=== PATIENT | male | born 1990 | race Two or more races ===

== ENCOUNTER 2020-08-19 19:52 | Emergency (ER) | payer MEDICAID ==
[~2020-08-19] VITALS: Ht 171.4 cm; Wt 90.7 kg
--- NOTE | 2020-08-19 20:47 | NUR ---
PATIENT TO ER BED 10 C/O LEFT FLANK PAIN FOR THE PAST 3x DAYS. PATIENT STATES THAT THIS MORNING HE WAS FEELING NAUSEOUS. PATIENT IS ALERT AND ORIENTED x4.. DENIES SHORTNESS OF BREATH. PATIENT IS CONNECTED TO THE MONITOR. WILL CONTINUE TO CLOSELY WATCH THE PATIENT.
--- NOTE | 2020-08-19 20:48 | NUR ---
BLOOD COLLECTED AND SENT TO THE LAB.
[2020-08-19] MEDS ORDERED: KETOROLAC TROMETHAMINE 15 MG/ML VIAL ONE (20:50)
[2020-08-19] MEDS: KETOROLAC TROMETHAMINE INJ 30 MG/ML VIAL IV ONE (20:51)
[2020-08-19] MEDS: IV NS 0.9% 1,000 ML BAG IV ONE (20:51)
[2020-08-19 20:57] LABS: BASOPHILS % (AUTO) 0.6 % (0.0-2.0); EOSINOPHILS % (AUTO) 5.2 % (0.0-6.0); HEMATOCRIT 46 % (39-51); HEMOGLOBIN 15.4 g/dL (13.5-17.5); LYMPHOCYTES # (AUTO) 2.6 /CMM (0.8-4.8); LYMPHOCYTES % (AUTO) 40.2 % (20.0-44.0); MEAN CORPUSCULAR HGB CONC 34 g/dl (31.0-36.0); MEAN CORPUSCULAR VOLUME 86 fL (80-96); MONOCYTES # (AUTO) 0.4 /CMM (0.1-1.30); MONOCYTES % (AUTO) 5.8 % (2.0-12.0); NEUTROPHILS # (AUTO) 3.1 /CMM (1.8-8.9); NEUTROPHILS % (AUTO) 48.2 % (43.0-81.0); PLATELET COUNT (AUTO) 217 /CMM (150-450); RED BLOOD CELL COUNT(AUTO) 5.29 MIL/uL (4.5-6.0); WHITE BLOOD COUNT (AUTO) 6.5 K/uL (4.3-11.0)
[2020-08-19 20:59] LABS: BILIRUBIN,URINE NEGATIVE (NEGATIVE); COLOR,URINE YELLOW (YELLOW); LEUKOCYTE ESTERASE ,URINE NEGATIVE (NEGATIVE); NITRITE, URINE NEGATIVE (NEGATIVE); PH,URINE 6.5 (5.0-8.0); PROTEIN,URINE NEGATIVE (NEGATIVE); UGLUCOSE NEGATIVE (NEGATIVE); UROBILINOGEN,URINE 0.2 EU/dL (0.2)
[2020-08-19 21:07] LABS: CALCIUM, SERUM 9.1 mg/dL (8.5-10.1); CREATININE 1.3 mg/dL (0.6-1.3); POTASSIUM 3.9 mmol/L (3.5-5.1)
[2020-08-19 21:13] LABS: ALBUMIN 4.3 g/dL (3.4-5.0); BILIRUBIN,DIRECT 0.1 mg/dL (0.0-0.2); BILIRUBIN,TOTAL 0.5 mg/dL (0.2-1.0); TOTAL PROTEIN, SERUM 7.5 g/dL (6.4-8.2)
--- NOTE | 2020-08-19 23:21 | NUR ---
IV removed. Catheter intact and site benign. Pressure and 4x4 applied to site. No bleeding noted.
--- NOTE | 2020-08-19 23:21 | NUR ---
Patient discharged to home in stable condition. Written and verbal after care instructions given. Patient verbalizes understanding of instruction.
[2020-08-19 23:26] VITALS: BP 132/78
== END 2020-08-19 23:27 | disposition home or self-care (01) ==
LOC: ER 19:56
DX: R10.32 Left lower quadrant pain (principal); Q63.2 Ectopic kidney; R11.0 Nausea
CPT/HCPCS: 36415; 74176; 80048; 80076; 81003; 83690; 85025; 96361; 96374; 99284; J1885; J7030